=== PATIENT | female | born 2000 | race Asian ===

== ENCOUNTER 2023-05-30 09:48 | Emergency (ER) | payer BC ==
[2023-05-30 10:34] LABS: Actual Bicarbonate (HCO3v) 21.8 mEq/L (22-28); Analyzer IN Cardio ER; Calcium, Ionized (venous) 1.08 mmol/L (1.16-1.32); Chloride (VBG) 106 mmol/L (98-106); Hematocrit-VBG 40 % (36.0-47.0); Hemoglobin (Hb) 13.7 g/dL (11.7-15.5); Potassium (VBG) 3.74 mmol/L (3.70-5.30); pH (venous) 7.463 (7.32-7.43)
[2023-05-30 10:38] LABS: Pregnancy Test - Urine (BHCG) Negative (Negative); Pregu Control Background? CLEAR/WHITE (CLR/WHITE); Pregu Control Bar Appear? YES (CONTROL BAR); Specific Gravity 1.017 (1.002-1.036)
[2023-05-30 10:39] LABS: Bilirubin Unable to Interpret (Negative); Blood, Urine Unable to Interpret (Negative); Clarity Hazy (Clear); Glucose, Urine (Dipstick) Unable to Interpret mg/dL (Negative); Ketone, Urine Unable to Interpret mg/dL (Negative); Leukocyte Unable to Interpret Leu/uL (Negative); Nitrite Unable to Interpret (Negative); Protein, Urine (Dipstick) Unable to Interpret mg/dL (Neg-Trace); Specific Gravity, Urine 1.017 (1.002-1.036); Urobilinogen UNABLE TO INTERPRET mg/dL (Less than 2); pH, Urine 7.7 (5.0-9.0)
[2023-05-30 10:46] LABS: #Basophils 0.1 thou/uL (0.0-0.2); #Eosinphils 0.3 thou/uL (0.0-0.7); #Monocytes 0.9 thou/uL (0.11-0.59); %Basophils 0.7 % (0.0-1.0); %Eosinophils 2.3 % (0.0-10.0); %Lymphocytes 21.6 % (21.0-51.0); %Neutrophils 68.1 % (42.0-75.0); Hematocrit 39.3 % (36.0-47.0); Hemoglobin 13.4 g/dL (12.0-16.0); Mean Corpuscular HGB CONC 34.1 g/dL (32.0-36.0); Mean Corpuscular Hemoglobin 31.9 pg (27.0-31.0); Mean Corpuscular Volume 93.6 fl (78.0-98.0); Mean Platelet Volume 9.3 fL (7.4-10.4); Platelet Count 320 10x3/uL (130-400); White Blood Cell (WBC) Count 13.2 10x3/uL (4.8-10.8)
[2023-05-30 10:58] LABS: Bacteria/HPF 2+ HPF (None Seen); CAUTI Indications for Culture Dysuria,urgency,freq
[2023-05-30 11:00] LABS: Urine Culture Reflex Yes Yes
[2023-05-30 11:06] LABS: ALT (SGPT) 10 U/L (8-55); AST (SGOT) 14 U/L (5-34); Albumin 4.1 g/dL (3.5-5.0); Alkaline Phosphatase 55 U/L (40-110); Anion Gap 9 mmol/L (10-20); BUN (Urea Nitrogen) 11 mg/dL (7.0-18.7); Bilirubin, Total 0.4 mg/dL (0.2-1.2); Calc. Creatinine Clearance 0 mL/min (70-130); Calcium 8.9 mg/dL (7.8-10.44); Carbon Dioxide 22 mmol/L (22-29); Estimated GFR 110; Globulin 3.1 g/dL (2.4-3.5); Glucose 78 mg/dL (70-105); Protein, Total 7.2 g/dL (6.0-8.3)
[2023-05-30 11:27] LABS: Chloride 108 mmol/L (98-107); Potassium 3.7 mmol/L (3.5-5.1); Sodium 135 mmol/L (136-145)
== END 2023-05-30 12:04 | disposition home or self-care (01) ==
LOC: ERS 09:48
DX: D74.9 Methemoglobinemia, unspecified (principal); N39.0 Urinary tract infection, site not specified; F17.290 Nicotine dependence, other tobacco product, uncomplicated
CPT/HCPCS: 36415; 71045; 80053; 81001; 81025; 82805; 85025; 85379; 87077; 87086; 87186; 93005